=== PATIENT | male | born 1960 | race Caucasian/White ===

== ENCOUNTER 2023-09-19 09:20 | Inpatient (IN) | payer BC, OTHER ==
[~2023-09-19] VITALS: Ht 185.4 cm; Wt 114.0 kg
[2023-09-19 10:40] LABS: Hematocrit 47.5 % (41.0-53.0); Hemoglobin 16.2 g/dL (13.5-17.5); Mean Corpuscular Hemoglobin 30.1 pg (28.0-32.0); Mean Corpuscular Hgb Conc. 34.2 g/dL (32.0-36.0); Mean Corpuscular Volume 87.9 fL (80.0-100.0); Red Cell Distribution Width 13.9 % (11.8-14.3); White Blood Cell 11.7 10^3/uL (4.4-10.8)
[2023-09-19 10:42] VITALS: BP 150/87; PULSE 63; RESP 18; TEMP 97.9; O2SAT 97
[2023-09-19] MEDS: SODIUM CHLORIDE 0.9% 1,000 ML IV ONE (10:45)
[2023-09-19 10:49] LABS: Basophils % (manual) 0 (0.0-2.0); Blast Cells 0; Metamyelocytes % 0; Reactive Lymphocytes 0
[2023-09-19 11:00] LABS: Urine Bacteria NONE SEEN /hpf (None Seen); Urine Blood Negative /uL (Negative); Urine Clarity Clear (Clear); Urine Color Yellow (Yellow); Urine Protein, UAD TRACE (Negative); Urine Specific Gravity 1.017 (1.001-1.035); Urine Urobilinogen Normal (Negative); Urine WBC 1 /hpf (0 - 3); Urine pH 5.5 (5.0-8.0)
[2023-09-19 11:00] LABS: Alanine Aminotransferase 19 U/L (7-40); Albumin 4.8 g/dL (3.2-4.8); Alkaline Phosphatase 73 U/L (46-116); Anion Gap 9 (5-15); Aspartate Aminotransferase 25 U/L (13-40); BUN/Creatinine Ratio 7.1 (10.0-20.0); Blood Urea Nitrogen 11 mg/dL (9-23); Calcium 9.5 mg/dL (8.7-10.4); Carbon Dioxide 26 mmol/L (20-30); Chloride 103 mmol/L (98-107); Glucose 124 mg/dL (74-106); Lipase 40 U/L (12-53); Sodium 138 mmol/L (136-145)
[2023-09-19 11:01] LABS: Bilirubin, Total 1.3 mg/dL (0.2-1.0); Total Protein 7.3 g/dL (5.7-8.2)
[2023-09-19] MEDS: KETOROLAC TROMETH 30 MG/ML 1ML VIAL IV ONE (11:03)
[2023-09-19] MEDS ORDERED: ONDANSETRON HCL 4 MG/2 ML VIAL ONE (11:11)
[2023-09-19] MEDS: FUROSEMIDE 40 MG/4 ML VIAL IV ONE (11:16)
[2023-09-19 11:20] LABS: Band Neutrophils % (manual) 1; Eosinophils % (manual) 11 (0-7); Lymphocytes % (manual) 8 (10.0-50.0); Monocytes % (manual) 2 (0-12); Myelocytes % 1; Promyelocytes % 3
[2023-09-19] MEDS: ONDANSETRON HCL 4 MG/2 ML VIAL IV ONE (11:20)
[2023-09-19 11:21] LABS: Platelet Estimate Adequate
[2023-09-19] MEDS ORDERED: MORPHINE SULFATE INJ 2 MG/ml SYRG IV PRN (14:00)
[2023-09-19] MEDS ORDERED: DOCUSATE SOD 100 MG CAP PO PRN (14:00)
[2023-09-19] MEDS ORDERED: ONDANSETRON HCL 4 MG/2 ML VIAL IV PRN (14:00)
[2023-09-19 15:15] LABS: Creatinine, Urine 144.64 mg/dL (30.0-125.0)
[2023-09-19] MEDS: cefTRIAXone 1GM/50ML D5W 50 ML IV ONE (16:22)
[2023-09-19] MEDS: SODIUM CHLORIDE 0.9% 1,000 ML IV SCH (16:22)
[2023-09-19] MEDS ORDERED: TAMSULOSIN HYDROCHLORIDE 0.4 MG CAP PO SCH (18:00)
[2023-09-20] MEDS ORDERED: cefTRIAXone 1GM/50ML D5W 50 ML IV SCH (09:00)
== END 2023-09-19 16:54 | disposition left against medical advice (07) | DRG 690 ==
LOC: ER 09:20 → OVERFLOW 13:56
PROVIDERS: ADMIT Nurse Practitioner Family; ATTEND Nurse Practitioner Family
DX: N13.6 Pyonephrosis (principal); N17.9 Acute kidney failure, unspecified; E86.0 Dehydration; Z87.442 Personal history of urinary calculi
CPT/HCPCS: 36415; 74176; 80053; 81001; 82570; 83690; 84300; 85007; 85027; G0378; J1885; J2405

== ENCOUNTER 2023-09-19 23:22 | Inpatient (IN) | payer BC ==
[~2023-09-19] VITALS: Ht 186.7 cm; Wt 114.1 kg
[2023-09-20] MEDS ORDERED: HYDROmorphone HCL 2 MG/ML VL/or syr IV ONE (00:30)
[2023-09-20 00:54] LABS: Chloride 105 mmol/L (98-107); Potassium 3.7 mmol/L (3.5-5.1); Sodium 137 mmol/L (136-145)
[2023-09-20 00:55] LABS: Anion Gap 8 (5-15); Calcium 9.1 mg/dL (8.7-10.4); Carbon Dioxide 24 mmol/L (20-30)
[2023-09-20 01:00] LABS: BUN/Creatinine Ratio 8.6 (10.0-20.0); Blood Urea Nitrogen 14 mg/dL (9-23); Glucose 129 mg/dL (74-106)
[2023-09-20 01:02] LABS: Hematocrit 45.1 % (41.0-53.0); Hemoglobin 15.2 g/dL (13.5-17.5); Mean Corpuscular Hemoglobin 29.5 pg (28.0-32.0); Mean Corpuscular Hgb Conc. 33.8 g/dL (32.0-36.0); Mean Corpuscular Volume 87.3 fL (80.0-100.0); Red Blood Cells 5.16 10^6/uL (4.5-5.90); Red Cell Distribution Width 13.8 % (11.8-14.3); White Blood Cell 11.5 10^3/uL (4.4-10.8)
[2023-09-20 01:05] LABS: Band Neutrophils % (manual) 0; Basophils % (manual) 0 (0.0-2.0); Blast Cells 0; Metamyelocytes % 0; Myelocytes % 0; Promyelocytes % 0; Reactive Lymphocytes 0
[2023-09-20] MEDS: SODIUM CHLORIDE 0.9% 1,000 ML IVB ONE (01:34)
[2023-09-20] MEDS: OXYCODONE W/ ACETAMINOPHEN 5/325MG TABLET PO ONE (01:37)
[2023-09-20] MEDS: ONDANSETRON ODT 4 MG TAB PO ONE (01:39)
[2023-09-20 01:56] LABS: Eosinophils % (manual) 16 (0-7); Lymphocytes % (manual) 6 (10.0-50.0); Monocytes % (manual) 6 (0-12); Platelet Estimate Adequate; RBC Morphology Normal
[2023-09-20] MEDS ORDERED: ACETAMINOPHEN 325 MG TAB PO PRN (02:30)
[2023-09-20] MEDS ORDERED: DOCUSATE SOD 100 MG CAP PO PRN (02:30)
[2023-09-20] MEDS: HYDROcodone-ACET 5/325MG TAB PO PRN (03:10)
[2023-09-20] MEDS ORDERED: MORPHINE SULFATE INJ 2 MG/ml SYRG IV PRN (03:45)
[2023-09-20] MEDS ORDERED: NITROGLYCERIN 0.4 MG SL TAB SL PRN (03:45)
[2023-09-20 07:31] VITALS: RESP 14; O2SAT 99
[2023-09-20] MEDS: cefTRIAXone 1GM/50ML D5W 50 ML IV SCH (09:07)
[2023-09-20] MEDS: SODIUM CHLORIDE 0.9% 1,000 ML IV SCH (10:07)
[2023-09-20] MEDS: TAMSULOSIN HYDROCHLORIDE 0.4 MG CAP PO ONE (10:07)
[2023-09-20 11:14] LABS: Urine Bacteria NONE SEEN /hpf (None Seen); Urine Blood Negative /uL (Negative); Urine Clarity Clear (Clear); Urine Color Yellow (Yellow); Urine Protein, UAD Negative (Negative); Urine Urobilinogen Normal (Negative); Urine WBC 2 /hpf (0 - 3); Urine pH 5.5 (5.0-8.0)
[2023-09-20] MEDS: ONDANSETRON HCL 4 MG/2 ML VIAL IV PRN (15:28)
[2023-09-20] MEDS: HYDROmorphone HCL 2 MG/ML VL/or syr IV PRN (15:33)
[2023-09-20] MEDS: TAMSULOSIN HYDROCHLORIDE 0.4 MG CAP PO SCH (18:05)
[2023-09-21] VITALS (7 sets, daily range): BP systolic 125–159; BP diastolic 73–83; PULSE 60–75; RESP 17–19; TEMP 97.3–98.5; O2SAT 93–99
[2023-09-21] MEDS: KETOROLAC TROMETH 30 MG/ML 1ML VIAL IV ONE (01:16)
[2023-09-21 07:20] LABS: Hematocrit 38.8 % (41.0-53.0); Hemoglobin 13.5 g/dL (13.5-17.5); Mean Corpuscular Hemoglobin 30.4 pg (28.0-32.0); Mean Corpuscular Hgb Conc. 34.6 g/dL (32.0-36.0); Mean Corpuscular Volume 87.7 fL (80.0-100.0); Red Blood Cells 4.43 10^6/uL (4.5-5.90); Red Cell Distribution Width 13.2 % (11.8-14.3); White Blood Cell 8.4 10^3/uL (4.4-10.8)
[2023-09-21 07:25] LABS: Alanine Aminotransferase 14 U/L (7-40); Albumin 3.9 g/dL (3.2-4.8); Alkaline Phosphatase 51 U/L (46-116); Anion Gap 7 (5-15); Aspartate Aminotransferase 16 U/L (13-40); Blood Urea Nitrogen 13 mg/dL (9-23); Calcium 8.6 mg/dL (8.5-10.1); Carbon Dioxide 25 mmol/L (20-30); Chloride 108 mmol/L (98-107); Glucose 89 mg/dL (74-106); Sodium 140 mmol/L (136-145)
[2023-09-21 07:26] LABS: Total Protein 5.7 g/dL (5.7-8.2)
[2023-09-21 07:44] LABS: Band Neutrophils % (manual) 0; Basophils % (manual) 0 (0.0-2.0); Blast Cells 0; Metamyelocytes % 0; Myelocytes % 0; Reactive Lymphocytes 0
[2023-09-21 14:30] LABS: Eosinophils % (manual) 27 (0-7); Lymphocytes % (manual) 12 (10.0-50.0); Monocytes % (manual) 10 (0-12); Promyelocytes % 2
[2023-09-21 14:31] LABS: Platelet Estimate Adequate
[2023-09-21] MEDS ORDERED: MORPHINE SULFATE INJ 2 MG/ml SYRG IV PRN (16:00)
[2023-09-22 05:00] VITALS: BP 152/88; PULSE 62; RESP 17; TEMP 98.5; O2SAT 95
[2023-09-22 08:27] VITALS: BP 141/79; PULSE 58; RESP 20; TEMP 98.6; O2SAT 93
[2023-09-22 10:01] VITALS: BP 141/79; PULSE 58; RESP 20; TEMP 98.6; O2SAT 93
[2023-09-22] MEDS: MANNITOL 20% SOLN 100 gm/500ml 100 ML IV ONE (10:07)
[2023-09-22] MEDS ORDERED: CIPR500T4 PO (10:12)
[2023-09-22] MEDS ORDERED: HYDR-4902 PO (10:12)
[2023-09-22] MEDS ORDERED: TAMS-35 PO (10:12)
[2023-09-22 12:33] VITALS: BP 151/82; PULSE 60; RESP 20; TEMP 98; O2SAT 94
== END 2023-09-22 13:02 | disposition home or self-care (01) | DRG 871 ==
LOC: ER 23:22 → OVERFLOW 09-20 03:46 → WEST WING 09-20 23:11
PROVIDERS: ADMIT Nurse Practitioner Family; ATTEND Nurse Practitioner Acute Care
DX: A41.9 Sepsis, unspecified organism (principal); N17.0 Acute kidney failure with tubular necrosis; N13.6 Pyonephrosis; E66.9 Obesity, unspecified; N30.90 Cystitis, unspecified without hematuria; K57.30 Diverticulosis of large intestine without perforation or abscess without bleeding; Z68.32 Body mass index [BMI] 32.0-32.9, adult; Z87.442 Personal history of urinary calculi; Z79.899 Other long term (current) drug therapy
CPT/HCPCS: 36415; 76775; 80048; 80053; 81001; 85007; 85027; 87086; 87088; 87186; G0378; J1885; J2405; Q0162